=== PATIENT | female | born 1990 | race Two or more races ===

== ENCOUNTER 2019-12-11 13:27 | Emergency (ER) | payer SELFPAY ==
[~2019-12-11] VITALS: Ht 160 cm; Wt 79.4 kg
[2019-12-11] MEDS ORDERED: PANTOPRAZOLE 40 MG/10 ML VIAL INJ IV STA (13:40)
[2019-12-11] MEDS ORDERED: SODIUM CHLORIDE 0.9% 1,000 ML IVB ONE (13:40)
[2019-12-11] MEDS ORDERED: ONDANSETRON HCL 4 MG/2 ML VIAL IV ONE (13:45)
[2019-12-11] MEDS ORDERED: MORPHINE SULFATE 4 MG/ML SYR/VIAL IV ONE (13:45)
[2019-12-11 13:51] LABS: Urine Bacteria NONE SEEN /hpf (None Seen); Urine Blood Negative /uL (Negative); Urine WBC <1 /hpf (0 - 5)
[2019-12-11 14:04] LABS: Basophils # (auto) 0.1 10 ^3/uL (0-0.2); Basophils % (auto) 1.2 % (0.0-2.0); Eosinophils # (auto) 0.1 10 ^3/uL (0-0.8); Hematocrit 41.8 % (36.0-46.0); Hemoglobin 13.7 g/dL (12.2-16.2); Lymphocytes # (auto) 2.3 10 ^3/uL (0.4-5.4); Lymphocytes % (auto) 22.6 % (10.0-50.0); Mean Corpuscular Hemoglobin 28.7 pg (28.0-32.0); Mean Corpuscular Hgb Conc. 32.9 g/dL (32.0-36.0); Mean Corpuscular Volume 87.5 fL (80.0-100.0); Monocytes # (auto) 0.7 10 ^3/uL (0-1.3); Monocytes % (auto) 7.2 % (0.0-12.0); Neutrophils # (auto) 6.8 10 ^3/uL (1.6-8.6); Nucleated Red Blood Cells % 0.1 %; Platelet Count (auto) 284 10^3/uL (140-450); Red Blood Cells 4.78 10^6/uL (4.0-5.20); Red Cell Distribution Width 13.7 % (11.8-14.3)
[2019-12-11 14:07] LABS: Alcohol, Urine < 3.0 mg/dL (0-10); Amphetamine Screen, Urine NEGATIVE (NEGATIVE); Barbiturate Scree,Urine NEGATIVE (NEGATIVE); Benzodiazephine Screen, Urine NEGATIVE (NEGATIVE); Cannabinoid Screen, Urine POSITIVE (NEGATIVE); Cocaine Screen, Urine NEGATIVE (NEGATIVE)
[2019-12-11 14:15] LABS: Opiate Scree,Urine NEGATIVE (NEGATIVE); Phencyclidine Screen, Urine NEGATIVE (NEGATIVE)
[2019-12-11 14:24] LABS: Albumin 3.7 g/dL (3.4-5.0); Calcium 8.4 mg/dL (8.5-10.1); Potassium 3.7 mmol/L (3.5-5.1)
[2019-12-11 14:27] LABS: BUN/Creatinine Ratio 23.2; Bilirubin, Total 0.2 mg/dL (0.2-1.0); Total Protein 7.2 g/dL (6.4-8.2)
[2019-12-11 15:18] VITALS: BP 124/79
== END 2019-12-11 15:21 | disposition home or self-care (01) ==
LOC: ER 13:27
DX: K29.00 Acute gastritis without bleeding (principal); F12.188 Cannabis abuse with other cannabis-induced disorder
CPT/HCPCS: 36415; 76705; 80053; 80307; 81001; 83690; 84702; 85025; 96361; 96374; 96375; 99284; C9113; J2405

== ENCOUNTER 2019-12-20 09:00 | Emergency (ER) | payer MEDICAID, OTHER ==
[~2019-12-20] VITALS: Ht 160 cm; Wt 79.4 kg
[2019-12-20 09:41] LABS: Urine Bacteria FEW /hpf (None Seen); Urine Blood 1+ /uL (Negative); Urine Mucus FEW (None Seen); Urine WBC 2 /hpf (0 - 5)
[2019-12-20 09:54] VITALS: BP 115/85
[2019-12-20] MEDS ORDERED: KETOROLAC TROMETH 60MG/2ML VIAL IM ONE (10:00)
[2019-12-20] MEDS ORDERED: PROMETHAZINE HCL 25 MG/ML 1ML IM ONE (10:30)
[2019-12-20 10:56] LABS: Basophils # (auto) 0.1 10 ^3/uL (0-0.2); Eosinophils # (auto) 0.1 10 ^3/uL (0-0.8); Eosinophils % (auto) 0.6 % (0.0-7.0); Hematocrit 44.3 % (36.0-46.0); Hemoglobin 14.8 g/dL (12.2-16.2); Lymphocytes # (auto) 1.6 10 ^3/uL (0.4-5.4); Lymphocytes % (auto) 14.1 % (10.0-50.0); Mean Corpuscular Hemoglobin 29.4 pg (28.0-32.0); Mean Corpuscular Hgb Conc. 33.4 g/dL (32.0-36.0); Mean Corpuscular Volume 87.9 fL (80.0-100.0); Monocytes # (auto) 0.6 10 ^3/uL (0-1.3); Monocytes % (auto) 5.7 % (0.0-12.0); Neutrophils # (auto) 8.6 10 ^3/uL (1.6-8.6); Neutrophils % (auto) 78.6 % (37.0-80.0); Platelet Count (auto) 274 10^3/uL (140-450); Red Blood Cells 5.03 10^6/uL (4.0-5.20); Red Cell Distribution Width 13.5 % (11.8-14.3)
[2019-12-20 11:06] LABS: Albumin 3.9 g/dL (3.4-5.0); Calcium 8.6 mg/dL (8.5-10.1)
[2019-12-20 11:10] LABS: BUN/Creatinine Ratio 23.1; Bilirubin, Total 0.3 mg/dL (0.2-1.0); Total Protein 7.4 g/dL (6.4-8.2)
== END 2019-12-20 14:28 | disposition home or self-care (01) ==
LOC: ER 09:00
DX: K52.9 Noninfective gastroenteritis and colitis, unspecified (principal); N39.0 Urinary tract infection, site not specified; N83.202 Unspecified ovarian cyst, left side; Z32.02 Encounter for pregnancy test, result negative
CPT/HCPCS: 36415; 74176; 76830; 76856; 80053; 81001; 81025; 85025; 96372; 99285; J1885; J2550

== ENCOUNTER 2020-08-20 16:31 | Emergency (ER) | payer SELFPAY ==
[~2020-08-20] VITALS: Ht 160 cm; Wt 73.0 kg
[2020-08-20 17:04] LABS: Urine Bacteria NONE SEEN /hpf (None Seen); Urine Blood Negative /uL (Negative); Urine Mucus FEW (None Seen); Urine Specific Gravity 1.024 (1.001-1.035); Urine WBC 1 /hpf (0 - 5)
[2020-08-20 18:19] LABS: Albumin 3.6 g/dL (3.4-5.0); INR 0.97 (0.9-1.15); Potassium 3.8 mmol/L (3.5-5.1)
[2020-08-20 18:22] LABS: Bilirubin, Total 0.4 mg/dL (0.2-1.0); Total Protein 7.3 g/dL (6.4-8.2)
[2020-08-20 18:30] LABS: Basophils # (auto) 0.1 10 ^3/uL (0-0.2); Eosinophils # (auto) 0.1 10 ^3/uL (0-0.8); Eosinophils % (auto) 1.1 % (0.0-7.0); Hematocrit 40.9 % (36.0-46.0); Hemoglobin 13.9 g/dL (12.2-16.2); Mean Corpuscular Hemoglobin 29.4 pg (28.0-32.0); Mean Corpuscular Volume 86.4 fL (80.0-100.0); Monocytes # (auto) 0.6 10 ^3/uL (0-1.3); Monocytes % (auto) 7.6 % (0.0-12.0); Neutrophils # (auto) 5.5 10 ^3/uL (1.6-8.6); Neutrophils % (auto) 66.3 % (37.0-80.0); Nucleated Red Blood Cells % 0.1 %; Platelet Count (auto) 291 10^3/uL (140-450); Red Blood Cells 4.74 10^6/uL (4.0-5.20); Red Cell Distribution Width 13.4 % (11.8-14.3); White Blood Cell 8.3 10^3/uL (4.4-10.8)
[2020-08-20 22:07] VITALS: BP 125/80
== END 2020-08-21 00:06 | disposition home or self-care (01) ==
LOC: ER 16:33
DX: K29.70 Gastritis, unspecified, without bleeding (principal); Z20.822 Contact with and (suspected) exposure to COVID-19
CPT/HCPCS: 36415; 76705; 80053; 81001; 81025; 82150; 83605; 83690; 84702; 85025; 85610; 87426; 99284; C9803; U0003

== ENCOUNTER 2023-01-23 09:00 | Emergency (ER) | payer MEDICAID, OTHER ==
[~2023-01-23] VITALS: Ht 160 cm; Wt 74.5 kg
[2023-01-23 09:38] VITALS: BP 138/78
[2023-01-23] MEDS ORDERED: KETOROLAC TROMETH 30 MG/ML 1ML VIAL IM ONE (10:15)
[2023-01-23 10:40] LABS: Urine Bacteria NONE SEEN /hpf (None Seen); Urine Blood Negative /uL (Negative); Urine Mucus FEW (None Seen); Urine Specific Gravity 1.031 (1.001-1.035); Urine WBC <1 /hpf (0 - 5)
[2023-01-23] MEDS ORDERED: IBUP1TAB5 PO (12:24)
[2023-01-23] MEDS ORDERED: CYCL-839 PO (12:24)
== END 2023-01-23 12:30 | disposition home or self-care (01) ==
LOC: ER 09:00
DX: S39.012A Strain of muscle, fascia and tendon of lower back, initial encounter (principal); M25.511 Pain in right shoulder; F15.90 Other stimulant use, unspecified, uncomplicated; Z98.890 Other specified postprocedural states; Z79.1 Long term (current) use of non-steroidal anti-inflammatories (NSAID); Z79.899 Other long term (current) drug therapy; X58.XXXA Exposure to other specified factors, initial encounter; Y93.89 Activity, other specified; Y92.89 Other specified places as the place of occurrence of the external cause; Y99.8 Other external cause status
CPT/HCPCS: 72100; 73030; 81001; 81025; 96372; 99284; J1885

== ENCOUNTER 2023-04-16 22:17 | Emergency (ER) | payer SELFPAY ==
[~2023-04-16] VITALS: Ht 160 cm; Wt 81.8 kg
[~2023-04-16 22:17] MED LIST: CYCL-839 PO; IBUP1TAB5 PO
[2023-04-16 22:37] VITALS: BP 120/79; PULSE 87; RESP 15; O2SAT 98
[2023-04-16] MEDS ORDERED: diphenhdrAMINE HCL 50 MG/1 ML VL IM ONE (22:45)
[2023-04-16] MEDS ORDERED: DexAMETHasone SOD PHOS 10MG/1ML VIAL INJ IM ONE (22:45)
== END 2023-04-17 02:39 | disposition left against medical advice (07) ==
LOC: ER 22:18
DX: R21 Rash and other nonspecific skin eruption (principal); L29.9 Pruritus, unspecified; Z53.21 Procedure and treatment not carried out due to patient leaving prior to being seen by health care provider
CPT/HCPCS: 99281; J1100; J1200